=== PATIENT | female | born 1945 | race Caucasian/White ===

== ENCOUNTER → 2016-12-18 | Outpatient (CLI) | payer MEDICARE ==
[2016-12-18 11:29] LABS: BUN 20 mg/dL (7-18)
[2016-12-18 11:32] LABS: GFR (ESTIMATED) 62 ML/MIN (59-)
== END ==
LOC: LAB 10:27
PROVIDERS: Internal Medicine Adolescent Medicine
DX: E78.5 Hyperlipidemia, unspecified (principal); E03.9 Hypothyroidism, unspecified

== ENCOUNTER → 2017-08-30 | Outpatient (CLI) | payer MEDICARE ==
[2017-08-30 12:52] LABS: BUN 12 mg/dL (7-18)
[2017-08-30 12:54] LABS: GFR (ESTIMATED) 71 ML/MIN (59-)
== END ==
LOC: LAB 11:47
PROVIDERS: Internal Medicine Adolescent Medicine
DX: R91.1 Solitary pulmonary nodule (principal)

== ENCOUNTER → 2017-09-05 | Outpatient (CLI) | payer MEDICARE ==
--- NOTE | 2017-09-06 10:48 | RADIOLOGY REPORT PS360 ---
CT CHEST W/WO CONTRAST HISTORY: Follow-up pulmonary nodule, solitary pulmonary nodule LUNG NODULE ORDERING PHYSICIAN: Jerry Winters MD PATIENT AGE: 72 years TECHNIQUE: Helical acquisition obtained without and with contrast. 75 mL's Isovue-370 utilized. Axial, sagittal, and coronal reformatted images are generated and reviewed. COMPARISON: 07/07/2017 FINDINGS: There are scattered small nodes in mediastinum and shannon. No dominant adenopathy or mediastinal or hilar mass is evident. Coronary artery calcifications are present. There is normal heart size. No evidence of pericardial effusion. Scattered areas of pulmonary fibrosis with centrilobular emphysematous changes and mild bronchial thickening consistent with obstructive chronic bronchitis. There are scattered calcified pulmonary nodules indicating old granulomatous disease. There is a well-circumscribed noncalcified pulmonary nodule in the superior segment of the left lower lobe which does not appear to significantly enhance with contrast. This may very well represent a noncalcified granuloma. This is unchanged since 07/07/2017 measuring 8 mm. No new nodules are evident. No acute bony anomalies. Upper abdominal images are unremarkable. No evidence of aortic aneurysm. IMPRESSION: 1. Stable left lower lobe nodule probably benign. Consider [address] follow-up without contrast. If stable at that time then can go to yearly follow-up 2. Obstructive chronic bronchitis with centrilobular emphysematous change and evidence of old granulomatous disease.
== END ==
LOC: RAD 12:54
DX: R91.1 Solitary pulmonary nodule (principal)
CPT/HCPCS: Q9967